=== PATIENT | male | born 1955 | race Caucasian/White ===

== ENCOUNTER 2016-11-06 10:25 | Day surgery (SDC) | payer OTHER ==
[2016-11-06] MEDS ORDERED: NALOXONE HCL 0.4 MG/ML INJ ONE (10:50)
[2016-11-06] MEDS ORDERED: ONDANSETRON 4 MG/2 ML VIAL ONE (10:50)
[2016-11-06] MEDS ORDERED: FLUMAZENIL 0.5 MG/5 ML MDV IVP ONE (10:50)
[2016-11-06] MEDS ORDERED: fentaNYL 100 MCG/2 ML INJ ONE (10:51)
[2016-11-06] MEDS ORDERED: MIDAZOLAM 2 MG/2 ML VIAL ONE (10:51)
[2016-11-06] MEDS ORDERED: IOPAMIDOL (ISOVUE-300) 100 ML BTL IV ONE (12:05)
[2016-11-06] MEDS ORDERED: ONDANSETRON 4 MG/2 ML VIAL IVP PRN (12:57)
== END 2016-11-06 14:00 | disposition home or self-care (01) ==
LOC: FIMAGING 10:25
PROVIDERS: ATTEND Internal Medicine Hematology & Oncology
PROC: 0DBV4ZX Excision of Mesentery, Percutaneous Endoscopic Approach, Diagnostic (ICD-10-PCS; principal; 2016-11-06 12:33)
DX: C78.6 Secondary malignant neoplasm of retroperitoneum and peritoneum (principal); C18.4 Malignant neoplasm of transverse colon; I10 Essential (primary) hypertension; I25.10 Atherosclerotic heart disease of native coronary artery without angina pectoris; Z95.5 Presence of coronary angioplasty implant and graft; Z80.0 Family history of malignant neoplasm of digestive organs
CPT/HCPCS: J2250; J2310; J2405; J3010; Q9967

== ENCOUNTER → 2016-11-20 | Day surgery (SDC) | payer OTHER ==
[~2016-11-20] MED LIST: BUPIVACAINE 0.5% 30 ML SDV ONE; CEFAZOLIN 2 GM/DEXTROSE/100 ML BAG IV ONE; DEXAMETHASONE 4 MG/ML VIAL ONE; LIDOCAINE 1% 2 ML INJ ONE; LIDOCAINE 1% 5 ML SDV ID PRN; LIDOCAINE 2% 5 ML SDV ONE; LR 1,000 ML IV ONE; PROPOFOL/EMULSION 500 MG/50 ML BOTTLE IV ONE; SKIN ADHESIVE (DERMABOND) 1 EACH TP ONE; ceFAZolin 2 GM/DEXTROSE 100 ML IV ONE; fentaNYL 100 MCG/2 ML INJ ONE
--- NOTE | 2016-11-20 12:24 | GOP ---
[f rep st] OPERATIVE REPORT DATE OF OPERATION: 11/20/2016 SURGEON: Neha French MD ANESTHESIA: Monitored anesthesia care with IV sedation. ANESTHESIOLOGIST: Dr. Sandra Jackson. PREOPERATIVE DIAGNOSIS: Colon cancer. POSTOPERATIVE DIAGNOSIS: Colon cancer. PROCEDURE PERFORMED: Right subclavian PowerPort placement. FINDINGS: Tip in SVC RA junction. SPECIMENS: None. ESTIMATED BLOOD LOSS: 10 cc. INDICATIONS: The patient is a 61-year-old who was diagnosed with colon cancer and requires a port f or chemotherapy. DESCRIPTION OF PROCEDURE: The patient was brought into the operating room, placed supine on the tab le, and monitored anesthesia care with IV sedation was performed. His bilateral neck and chest were prepped and draped in the usual sterile fashion. I infiltrated all sites with 0.5% Marcaine mixed with 1% lidocaine prior to making incisions. He was placed in the Trendelenburg position. I access ed the right subclavian vein on the first attempt. I threaded the guidewire and removed the needle. Placement was confirmed with fluoroscopy. I created a pocket to accommodate the port in the right chest. I tunneled this up to the insertion site. Under fluoroscopy I measured the port and cut it to size. Using the Seldinger technique, I placed a dilator and sheath over the wire. I removed th e wire and the dilator. I threaded the catheter through the sheath and peeled away the sheath. Vanessa cement was confirmed with fluoroscopy. The port withdrew blood easily and was flushed with heparin. The pocket was closed with 3-0 Vicryl followed by 4-0 Monocryl. Dermabond applied. He was awaken ed in the operating room and transferred to PACU in stable condition. /[id number]/MODL
== END | disposition home or self-care (01) ==
LOC: FSGY 09:39
PROVIDERS: ATTEND Surgery
DX: C18.4 Malignant neoplasm of transverse colon (principal); I10 Essential (primary) hypertension; I25.10 Atherosclerotic heart disease of native coronary artery without angina pectoris; E78.5 Hyperlipidemia, unspecified; Z95.5 Presence of coronary angioplasty implant and graft
CPT/HCPCS: C1788; J0690; J1100; J2704; J3010

== ENCOUNTER → 2017-09-17 | Outpatient (CLI) | payer OTHER ==
[~2017-09-17] MED LIST changes: +ALBUMIN 25% 100 ML SOLN IV ONE; -BUPIVACAINE 0.5% 30 ML SDV ONE; -CEFAZOLIN 2 GM/DEXTROSE/100 ML BAG IV ONE; -DEXAMETHASONE 4 MG/ML VIAL ONE; -LIDOCAINE 1% 2 ML INJ ONE; +LIDOCAINE 1% 300 MG/30 ML SDV ONE; -LIDOCAINE 1% 5 ML SDV ID PRN; -LIDOCAINE 2% 5 ML SDV ONE; -LR 1,000 ML IV ONE; -PROPOFOL/EMULSION 500 MG/50 ML BOTTLE IV ONE; -SKIN ADHESIVE (DERMABOND) 1 EACH TP ONE; -ceFAZolin 2 GM/DEXTROSE 100 ML IV ONE; -fentaNYL 100 MCG/2 ML INJ ONE
== END ==
LOC: FIMAGING 10:48
PROVIDERS: ATTEND Internal Medicine Hematology & Oncology
PROC: 0W9F3ZZ Drainage of Abdominal Wall, Percutaneous Approach (ICD-10-PCS; principal; 2017-09-17)
DX: R18.8 Other ascites (principal); C18.9 Malignant neoplasm of colon, unspecified
CPT/HCPCS: P9047

== ENCOUNTER → 2017-10-08 | Outpatient (CLI) | payer OTHER | LOC: FIMAGING 13:18 | PROVIDERS: ATTEND Internal Medicine Hematology & Oncology | PROC: 0W9F30Z Drainage of Abdominal Wall with Drainage Device, Percutaneous Approach (ICD-10-PCS; principal; 2017-10-08) | DX: R18.8 Other ascites (principal); C18.4 Malignant neoplasm of transverse colon | CPT/HCPCS: J1642; P9047 ==

== ENCOUNTER → 2017-10-22 | Outpatient (CLI) | payer OTHER ==
[~2017-10-22] MED LIST changes: -LIDOCAINE 1% 300 MG/30 ML SDV ONE
== END ==
LOC: FIMAGING 13:44
PROVIDERS: ATTEND Internal Medicine Hematology & Oncology
PROC: 0W9F30Z Drainage of Abdominal Wall with Drainage Device, Percutaneous Approach (ICD-10-PCS; principal; 2017-10-22)
DX: R18.8 Other ascites (principal); C18.4 Malignant neoplasm of transverse colon
CPT/HCPCS: P9047

== ENCOUNTER → 2017-11-13 | Outpatient (CLI) | payer OTHER ==
[~2017-11-13] MED LIST changes: +LIDOCAINE 1% 300 MG/30 ML SDV ONE
== END ==
LOC: FIMAGING 08:52
PROVIDERS: ATTEND Internal Medicine Hematology & Oncology
PROC: 0W9F3ZZ Drainage of Abdominal Wall, Percutaneous Approach (ICD-10-PCS; principal; 2017-11-13)
DX: R18.8 Other ascites (principal)
CPT/HCPCS: P9047

== ENCOUNTER → 2017-11-27 | Outpatient (CLI) | payer OTHER | LOC: FIMAGING 09:07 | PROVIDERS: ATTEND Internal Medicine Hematology & Oncology | PROC: 0W9F30Z Drainage of Abdominal Wall with Drainage Device, Percutaneous Approach (ICD-10-PCS; principal; 2017-11-27) | DX: R18.8 Other ascites (principal); C18.4 Malignant neoplasm of transverse colon | CPT/HCPCS: J1642; P9047 ==

== ENCOUNTER → 2017-12-11 | Outpatient (CLI) | payer OTHER ==
[~2017-12-11] MED LIST changes: +ALBUMIN 25% 50 ML SOLN IV ONE
== END ==
LOC: FIMAGING 09:18
PROVIDERS: ATTEND Nurse Practitioner
PROC: 0W9F3ZZ Drainage of Abdominal Wall, Percutaneous Approach (ICD-10-PCS; principal; 2017-12-11)
DX: R18.8 Other ascites (principal); C78.5 Secondary malignant neoplasm of large intestine and rectum
CPT/HCPCS: J1642; P9047

== ENCOUNTER → 2017-12-25 | Outpatient (CLI) | payer OTHER ==
[~2017-12-25] MED LIST changes: -ALBUMIN 25% 50 ML SOLN IV ONE
--- NOTE | 2017-12-25 12:55 | PDRADPN ---
Radiology Procedure Note Date of Procedure: 12/25/17 Radiologist: Adrian Varner Anesthesia: Local (Specify) Pre-op Diagnosis: ascites Post-op Diagnosis: same Indication: therapeutic Procedure: us guided para Finding(s): lg vol ascites, drained via RLQ. cloudy fluid Inf/Abcess present in the surg proc area at time of surgery?: No EBL: Minimal
== END ==
LOC: FIMAGING 09:40
PROVIDERS: ATTEND Internal Medicine Hematology & Oncology
PROC: 0W9F3ZZ Drainage of Abdominal Wall, Percutaneous Approach (ICD-10-PCS; principal; 2017-12-25)
DX: R18.8 Other ascites (principal); C19 Malignant neoplasm of rectosigmoid junction; C79.51 Secondary malignant neoplasm of bone; C78.6 Secondary malignant neoplasm of retroperitoneum and peritoneum
CPT/HCPCS: J1642; P9047

== ENCOUNTER 2018-01-05 07:29 | Day surgery (SDC) | payer OTHER ==
[2018-01-05] MEDS ORDERED: ALTEPLASE 2 MG VIAL IVP PRN (07:40)
[2018-01-05] MEDS ORDERED: HEPARIN 10,000 UNIT/10 ML MDV (1,000 UNIT/ML) IVP PRN (07:40)
[2018-01-05] MEDS ORDERED: MEPERIDINE 25 MG/ML SYR IVP PRN (07:40)
[2018-01-05] MEDS ORDERED: GLUCAGON HCL 1 MG VIAL IVP PRN (07:40)
[2018-01-05] MEDS ORDERED: NALOXONE HCL 0.4 MG/ML INJ IVP PRN (07:40)
[2018-01-05] MEDS ORDERED: FLUMAZENIL 0.5 MG/5 ML MDV IVP PRN (07:40)
[2018-01-05] MEDS ORDERED: PROTAMINE SULFATE 50 MG/5 ML VIAL IVP PRN (07:40)
[2018-01-05] MEDS ORDERED: fentaNYL 100 MCG/2 ML INJ IVP PRN (07:40)
[2018-01-05] MEDS ORDERED: MIDAZOLAM 2 MG/2 ML VIAL IVP PRN (07:40)
[2018-01-05] MEDS ORDERED: NS 1,000 ML IV SCH (07:45)
--- NOTE | 2018-01-05 08:31 | PDPROPOC ---
Sedation Plan of Care Sedation Plan of Care: vital signs stable, mental status noted, patient educated of risks, benefits, alternatives, patient can tolerate sedation ASA Classification: ASA 3 Planned drugs: fentanyl, midazolam Mallampati Score: Class 1 Mallampati Reference Image: Patient passed 3-3-2 rule?: Yes
--- NOTE | 2018-01-05 08:32 | PDGENHP ---
History & Physical Chief Complaint: RECURENT ASCITES History of Present Illness: METASTATIC COLORECTAL CA Pertinent Past, Social, Family History: N/A. LIVES [employer]. Relevant Physical Exam: DISTENDED ABDOMEN Cardiorespiratory Assessment: RRR, CTA
[2018-01-05] MEDS ORDERED: ALBUMIN 25% 100 ML SOLN IV ONE ×2 (09:39→09:55)
[2018-01-05] MEDS ORDERED: ceFAZolin 2 GM/SWFI 20 ML SYR IVP ONE (09:39)
[2018-01-05] MEDS ORDERED: ceFAZolin 2 GM/SWFI 2 GM/20 ML SYR IVP ONE (10:00)
[2018-01-05] MEDS ORDERED: oxyCODONE IR 5 MG TAB PO PRN (10:16)
[2018-01-05] MEDS ORDERED: ONDANSETRON 4 MG/2 ML VIAL IVP PRN (10:16)
[2018-01-05] MEDS ORDERED: ACETAMINOPHEN 325 MG TAB PO PRN (10:16)
[2018-01-05] MEDS ORDERED: LIDOCAINE 1% 300 MG/30 ML SDV ONE (10:16)
--- NOTE | 2018-01-05 10:18 | PDRADPN ---
Radiology Procedure Note Date of Procedure: 01/05/18 Radiologist: Joan Alvarez Anesthesia: IV Sedation Pre-op Diagnosis: mCRC Post-op Diagnosis: same Indication: recurrent ascites Procedure: EL DRAIN PLACEMENT Finding(s): >6L drained Inf/Abcess present in the surg proc area at time of surgery?: No Complications: none
[2018-01-05] MEDS ORDERED: ALBUMIN 25% 200 ML IV ONE (11:00)
[2018-01-05 11:37] VITALS: BP 101/59
== END 2018-01-05 12:00 | disposition home or self-care (01) ==
LOC: FIMAGING 07:29
PROVIDERS: ATTEND Internal Medicine Hematology & Oncology
PROC: 0W9F30Z Drainage of Abdominal Wall with Drainage Device, Percutaneous Approach (ICD-10-PCS; principal; 2018-01-05 10:20)
DX: C18.4 Malignant neoplasm of transverse colon (principal)
CPT/HCPCS: C2617; J0690; J1642; J2250; J2310; J3010; P9047

== ENCOUNTER → 2018-01-09 | Day surgery (SDC) | payer OTHER ==
[~2018-01-09] MED LIST changes: -ALBUMIN 25% 100 ML SOLN IV ONE; +IOPAMIDOL (ISOVUE-300) 100 ML BTL ONE
== END | disposition home or self-care (01) ==
LOC: FIMAGING 15:34
PROVIDERS: ATTEND Radiology Diagnostic Radiology
PROC: 3E0M3KZ Introduction of Other Diagnostic Substance into Peritoneal Cavity, Percutaneous Approach (ICD-10-PCS; principal; 2018-01-09)
DX: T85.638A Leakage of other specified internal prosthetic devices, implants and grafts, initial encounter (principal)
CPT/HCPCS: Q9967

== ENCOUNTER → 2018-06-21 | Day surgery (SDC) | payer OTHER ==
[~2018-06-21] MED LIST changes: -LIDOCAINE 1% 300 MG/30 ML SDV ONE
== END | disposition home or self-care (01) ==
LOC: FIMAGING 13:36
PROVIDERS: ATTEND Radiology Diagnostic Radiology
DX: T85.528A Displacement of other gastrointestinal prosthetic devices, implants and grafts, initial encounter (principal)
CPT/HCPCS: 49424; 76001; 76937; C1769; Q9967